=== PATIENT | male | born 1965 | race Native Hawaiian/Other Pacific Islander ===

== ENCOUNTER 2019-08-22 02:09 | Emergency (ER) | payer BC ==
[~2019-08-22] VITALS: Ht 167.6 cm; Wt 90.7 kg
[2019-08-22 03:14] VITALS: BP 128/88; TEMP 98.2
== END 2019-08-22 03:14 | disposition home or self-care (01) ==
LOC: ED 02:09
DX: L50.0 Allergic urticaria (principal); T39.015A Adverse effect of aspirin, initial encounter
CPT/HCPCS: 96360; 96374; 96375; 99284; J2930

== ENCOUNTER 2019-11-27 17:10 | Observation (INO) | payer BC ==
[~2019-11-27] VITALS: Ht 167.6 cm; Wt 94.9 kg
[2019-11-27 18:34] LABS: PLATELET COUNT 167 K/uL (142-355)
[2019-11-27 18:53] LABS: SODIUM 139 mmol/L (136-145)
[2019-11-27 19:24] LABS: PARTIAL THROMBOPLASTIN TIME 27.4 SECONDS (24.5-33.6)
[2019-11-27 19:29] VITALS: BP 171/94; TEMP 97.5; Ht 167.6 cm; Wt 94.9 kg
[2019-11-27 20:00] VITALS: BP 144/81; TEMP 97.8
[2019-11-28] VITALS: BP 159/79; TEMP 98
[2019-11-28 04:00] VITALS: BP 117/68; TEMP 98.7
[2019-11-28 08:09] VITALS: BP 147/82; TEMP 97.7
[2019-11-28 12:00] VITALS: BP 178/88; TEMP 98.1
== END 2019-11-28 12:40 | disposition home or self-care (01) ==
LOC: MED/SURG 17:10
PROVIDERS: ADMIT Family Medicine
DX: R06.09 Other forms of dyspnea (principal); R07.89 Other chest pain
CPT/HCPCS: 36415; 80053; 82550; 83735; 83880; 84100; 84402; 84403; 84443; 84484; 85027; 85379; 85610; 85730; 93005; 96365; 96366; 99220; G0378; G0379; J2930; Q9963

== ENCOUNTER 2019-12-05 08:38 | Outpatient (CLI) | payer BC | END 2019-12-05 19:28 | disposition home or self-care (01) | LOC: RESP 08:38 | DX: R07.9 Chest pain, unspecified (principal) | CPT/HCPCS: 93306 ==

== ENCOUNTER 2019-12-07 08:07 | Outpatient (CLI) | payer BC | END 2019-12-07 22:44 | disposition home or self-care (01) | LOC: NM 08:07 | DX: R07.9 Chest pain, unspecified (principal) | CPT/HCPCS: A9500 ==